=== PATIENT | female | born 1960 | race Caucasian/White ===

== ENCOUNTER → 2017-11-18 16:47 | Outpatient (CLI) | payer OTHER, SELFPAY | PROVIDERS: Family Provider Family Medicine; PCP Family Medicine; Visit Provider Family Medicine | DX: J34.89 Other specified disorders of nose and nasal sinuses (principal) | CPT/HCPCS: 87070; 87205 ==

== ENCOUNTER → 2019-12-12 14:38 | Outpatient (CLI) | payer OTHER, SELFPAY ==
[2019-12-12 13:37] VITALS: BMI 31.3
[2019-12-12 15:36] LABS: Anion Gap 6 (5-15); BUN 12 mg/dL (7-18); BUN/Creat Ratio 14.4 RATIO (10-20); Calcium,Total 9.5 mg/dL (8.5-10.1); Chloride 105 mmol/L (98-107); Cholesterol 219 mg/dL (200); Creatinine, Serum 0.84 mg/dL (0.55-1.02); EST Glomerular Filtration Rate 74 mL/min (>60); Est Glom Filt Rate - Afr Amer 89 mL/min (>60); Glucose 99 mg/dL (74-106); High Density Lipoprotein 50 mg/dL; Potassium 3.7 mmol/L (3.5-5.1); Sodium Level 140 mmol/L (136-145); Thyroid Stim Hormone (TSH) 1.26 uIU/mL (0.358-3.74); Triglycerides 224 mg/dL; Very Low Density Lipoprotein 45 mg/dL (5-40)
== END ==
PROVIDERS: PCP Family Medicine; Referring Provider Internal Medicine Cardiovascular Disease; Visit Provider Internal Medicine Cardiovascular Disease
DX: I10 Essential (primary) hypertension (principal); E78.5 Hyperlipidemia, unspecified
CPT/HCPCS: 36415; 80048; 80061; 84443

== ENCOUNTER → 2020-01-18 14:24 | Outpatient (CLI) | payer OTHER, SELFPAY ==
[2019-12-12 13:37] VITALS: BMI 31.3
--- NOTE | 2020-01-18 14:25 | ECHOD_ITS ---
Reason For Study: HTN Procedure This was a 2D Doppler, Color Flow transthoracic echocardiogram. Exam performed in department. Left Ventricle Normal LV size. Apical false tendon noted. Left ventricular systolic function is normal. The estimated ejection fraction is 60 %. Stage 2 diastolic dysfunction. No regional wall motion abnormalities noted. Right Ventricle Normal RV size. Normal systolic function. Atria Normal left atrium. Normal right atrium. Mitral Valve Normal mitral valve. Tricuspid Valve Normal tricuspid valve. Mild tricuspid valve insufficiency. Pulmonary artery systolic pressure is 20 mmHg. Aortic Valve The aortic valve is not well visualized. Pulmonic Valve Normal pulmonic valve. Great Vessels Normal aortic root. The pulmonary artery is normal size. Normal inferior vena cava. Pericardium/Pleural No pericardial effusion. MMode/2D Measurements & Calculations LVIDd: 4.2 cm IVSd: 0.82 cm Ao root diam: 3.2 cm LVIDs: 2.3 cm LVPWd: 0.80 cm RVDd: 2.8 cm FS: 43.7 % LAV(MOD-bp): 32.4 ml LA A4 area: 14.3 cm2 LA dimension(2D): 2.9 cm LAV(MOD-bp) Indexed: 16.2 ml/m2 LAV(MOD-sp2): 30.5 ml LAV(MOD-sp4): 33.1 ml RA A4 area: 8.3 cm2 Time Measurements MV dec time: 0.21 sec Doppler Measurements & Calculations MV E max reji: 74.8 cm/sec Lat Peak E' Reji: 6.9 cm/sec Med Peak E' Reji: 6.1 cm/sec MV A max reji: 83.5 cm/sec E/E' lat: 10.8 E/E' med: 12.3 MV E/A: 0.90 Ao V2 max: 119.7 cm/sec LV V1 max: 95.5 cm/sec PA V2 max: 109.6 cm/sec Ao max P.7 mmHg LV V1 max P.7 mmHg TR max reji: 194.4 cm/sec TR max P.1 mmHg Interpretation Summary Normal LV size. Left ventricular systolic function is normal. The estimated ejection fraction is 60 %. Apical false tendon noted. Pulmonary artery systolic pressure is 20 mmHg. Stage 2 diastolic dysfunction. Ordering Physician: Sixto Talley Referring Physician: MADONNA LYNCH Performed By: Rosibel Nichole, TONJA, RVT
== END ==
PROVIDERS: PCP Family Medicine; Referring Provider Internal Medicine Cardiovascular Disease; Visit Provider Internal Medicine Cardiovascular Disease
DX: I10 Essential (primary) hypertension (principal)
CPT/HCPCS: 93306

== ENCOUNTER → 2020-06-06 12:05 | Outpatient (CLI) | payer OTHER, SELFPAY ==
[2019-12-12 13:37] VITALS: BMI 31.3
[2020-06-06 14:00] LABS: AST(SGOT) 17 U/L (15-37); Alanine Aminotransfer ALT/SGPT 30 U/L (13-56); Albumin, Serum 4.2 g/dL (3.2-5.0); Alkaline Phosphatase 85 U/L (45-117); Bilirubin, Direct 0.24 mg/dL (0.00-0.30); Cholesterol 209 mg/dL (200); Globulin 3.8 g/dL (2.2-4.2); High Density Lipoprotein 49 mg/dL; Triglycerides 190 mg/dL; Very Low Density Lipoprotein 38 mg/dL (5-40)
== END ==
PROVIDERS: PCP Family Medicine; Referring Provider Internal Medicine Cardiovascular Disease; Visit Provider Internal Medicine Cardiovascular Disease
DX: E78.00 Pure hypercholesterolemia, unspecified (principal); E78.5 Hyperlipidemia, unspecified
CPT/HCPCS: 36415; 80061; 80076

== ENCOUNTER 2022-07-12 08:28 | Day surgery (SDC) | payer OTHER, SELFPAY ==
--- NOTE | 2022-07-06 12:22 | EKG12_ITS ---
Test Reason : PREOP Blood Pressure : / mmHG Vent. Rate : 099 BPM Atrial Rate : 099 BPM P-R Int : 164 ms QRS Dur : 090 ms QT Int : 372 ms P-R-T Axes : 067 034 062 degrees QTc Int : 477 ms Normal sinus rhythm Incomplete right bundle branch block Confirmed by ELIAN OROZCO, HAYDEE ([id number]), book or script editor TRISTAN HAND ([id number]) on 07/07/2022 6:44:59 AM Referred By: Raghav Bazzi Confirmed By:HAYDEE PLUMMER MD
[2022-07-06 13:10] LABS: Hematocrit 48.2 % (37-47); Hemoglobin 16.6 g/dL (12.0-15.0); Mean Corp Hgb Conc 34.4 g/dL (32-36); Mean Corpuscular Hgb 29.4 pg (27.0-32.0); Mean Corpuscular Volume 85.3 fL (81-99); Mean Platelet Vol. 9.9 fl (6.2-12.0); Platelet Count 247 K/mm3 (150-450); RBC Distribution Width CV 13.7 % (11.6-14.6); RBC Distribution Width SD 42.1 fl (35.1-43.9); Red Blood Count 5.65 M/mm3 (4.2-5.4); White Blood Count 7.9 K/mm3 (4.4-11.0)
[2022-07-06 13:46] LABS: Anion Gap 6 (5-15); BUN 14 mg/dL (7-18); BUN/Creat Ratio 16.2 RATIO (10-20); Calcium,Total 9.7 mg/dL (8.5-10.1); Chloride 107 mmol/L (98-107); Creatinine, Serum 0.86 mg/dL (0.55-1.02); EST Glomerular Filtration Rate 71 mL/min (>60); Est Glom Filt Rate - Afr Amer 85 mL/min (>60); Glucose 121 mg/dL (74-106); Potassium 3.9 mmol/L (3.5-5.1); Sodium Level 142 mmol/L (136-145)
[2022-07-12] VITALS (10 sets, daily range): BP systolic 96–144; BP diastolic 57–85; PULSE 69–85; RESP 16–18; TEMP 35.9–36.7; O2SAT 89–100
[2022-07-12] MEDS: Lactated Ringers 1,000 ML 15 ML IV (08:35)
[2022-07-12] MEDS: Cefazolin 2 GM in 0.9% Normal Saline 100 ML IV (09:59)
[2022-07-12] MEDS: Lidocaine 2% /Epi 1:100 (50ml) 50 ML Vial (10:01)
[2022-07-12] MEDS: Epinephrine (1 mg/ml) 1 MG/ML VIAL (10:01)
--- NOTE | 2022-07-12 11:17 | OP.PCM_ITS ---
Report of Operation Date of Procedure: 07/12/22 Pre-Operative Diagnosis: Adhesive capsulitis, SAIS, AC arthritis, possible rota tor cuff tear left shoulder Post-Operative Diagnosis: Same with intact rotator cuff Surgery/Procedure Performed:: Manipulation under anesthesia, ASD, Rose procedure, intra-articular debridement and inspection of rotator cuff Surgeon: Raghav Bazzi airplane captain: Kunal Myers Type of Anesthesia: General/Regional Anesthesiologist: Marek Quintero Admceci VTE Documentation VTE Present on Admission: No VTE Mechan Device Prophylaxis: SCD's and Thigh High BRIAN Hose Reason prophylaxis not ordered:: Treatment Not Indicated
[2022-07-12] MEDS: Ondansetron 4 MG/2 ML Vial IV (14:46)
== END 2022-07-12 15:20 | disposition home or self-care (01) ==
LOC: SDC 08:29 → AC 08:29
PROVIDERS: PCP Nurse Practitioner Primary Care; Referring Provider Orthopaedic Surgery; Visit Provider Orthopaedic Surgery
PROC: (CPT 29827; principal; 2022-07-12 10:15)
DX: M75.02 Adhesive capsulitis of left shoulder (principal); Z86.2 Personal history of diseases of the blood and blood-forming organs and certain disorders involving the immune mechanism; M19.012 Primary osteoarthritis, left shoulder; M79.7 Fibromyalgia; I10 Essential (primary) hypertension; Z86.718 Personal history of other venous thrombosis and embolism; Z79.899 Other long term (current) drug therapy; Z91.81 History of falling; Z86.16 Personal history of COVID-19; M75.42 Impingement syndrome of left shoulder; E66.9 Obesity, unspecified; R13.10 Dysphagia, unspecified; K76.0 Fatty (change of) liver, not elsewhere classified; E78.5 Hyperlipidemia, unspecified; I51.9 Heart disease, unspecified
CPT/HCPCS: 23700; 29824; 29826; 01630; 64415; 36415; 80048; 85027; 93005; J7120; J2405

== ENCOUNTER → 2025-04-09 | Outpatient (CLI) | payer MEDICARE, SELFPAY ==
--- NOTE | 2025-04-09 12:46 | ECHOD_ITS ---
Reason For Study Reason For Study: HYPERTENSION Procedure This was a 2D Doppler, Color Flow transthoracic echocardiogram. Exam performed in department. Left Ventricle Normal LV size. Left ventricular systolic function is normal. The left ventricular ejection fraction is 65 %. Stage 1 diastolic dysfunction. No regional wall motion abnormalities noted. Right Ventricle Normal RV size. Normal systolic function. Atria Normal left atrium. Normal right atrium. Mitral Valve Normal mitral valve. Tricuspid Valve Normal tricuspid valve. Mild (1+) tricuspid valve insufficiency. Pulmonary artery systolic pressure is 20 mmHg. Aortic Valve Trisinus/trileaflet aortic valve. Pulmonic Valve Normal pulmonic valve. Great Vessels Normal aortic root. The pulmonary artery is normal size. Normal inferior vena cava. Pericardium/Pleural No pericardial effusion. MMode/2D Measurements & Calculations LVIDd: 4.7 cm IVSd: 0.80 cm LVOT diam: 2.0 cm LVIDs: 2.4 cm LVPWd: 0.90 cm LVOT area: 3.1 cm2 RVDd: 3.0 cm FS: 49.9 % asc Aorta Diam: 3.1 cm LAV(MOD-bp): 23.0 ml LVAd ap4: 18.0 cm2 LAV(MOD-bp) Indexed: 11.6 ml/m2 LVLd ap4: 6.7 cm LAV(MOD-sp2): 25.0 ml EDV(MOD-sp4): 40.5 ml LAV(MOD-sp4): 19.9 ml EDV(sp4-el): 41.5 ml LVAs ap4: 8.6 cm2 LVLs ap4: 5.3 cm ESV(MOD-sp4): 11.9 ml ESV(sp4-el): 11.7 ml EF(MOD-sp4): 70.6 % EF(sp4-el): 71.7 % LVAd ap2: 18.5 cm2 SV(MOD-sp4): 28.6 ml SV(MOD-sp2): 25.6 ml LVLd ap2: 6.9 cm SI(MOD-sp4): 14.5 ml/m2 SI(MOD-sp2): 12.9 ml/m2 EDV(MOD-sp2): 41.6 ml EDV(sp2-el): 42.0 ml LVAs ap2: 10.6 cm2 LVLs ap2: 6.1 cm ESV(MOD-sp2): 16.0 ml ESV(sp2-el): 15.7 ml EF(MOD-sp2): 61.6 % SV(sp4-el): 29.8 ml Ao sinus diam: 3.[address] Junction: 2.4 cm LA dimension(2D): 3.1 cm LA A4 area: 10.3 cm2 RA A4 area: 7.4 cm2 TAPSE: 1.8 cm Time Measurements MV dec time: 0.14 sec Doppler Measurements & Calculations MV E max reji: 69.8 cm/sec Lat Peak E' Reij: 11.1 cm/sec Med Peak E' Reji: 10.7 cm/sec MV A max reji: 92.1 cm/sec E/E' lat: 6.3 E/E' med: 6.5 MV E/A: 0.76 MV dec slope: 516.2 cm/sec2 Ao V2 max: 120.3 cm/sec LV V1 max: 102.9 cm/sec Ao max P.8 mmHg LV V1 max P.2 mmHg Ao V2 mean: 89.0 cm/sec LV V1 mean P.2 mmHg Ao mean P.5 mmHg LV V1 mean: 69.5 cm/sec Ao V2 VTI: 23.4 cm LV V1 VTI: 20.0 cm AV (velocity ratio): 0.86 ZORA(I,D): 2.7 cm2 ZORA(V,D): 2.6 cm2 SV(LVOT): 62.0 ml PA V2 max: 102.2 cm/sec TR max reji: 204.8 cm/sec TR max P.8 mmHg ECHO/Echo Complete Interpretation Summary Normal LV size. Left ventricular systolic function is normal. The left ventricular ejection fraction is 65 %. Stage 1 diastolic dysfunction. Ordering Physician: Sarahi Escalante Referring Physician: Sarahi Escalante Performed By: Nara Luciano RDCS
== END | disposition home or self-care (01) ==
LOC: CVS 12:45
PROVIDERS: Referring Provider Physician Assistant Medical; Visit Provider Physician Assistant Medical
DX: I51.9 Heart disease, unspecified (principal)
CPT/HCPCS: 93306